=== PATIENT | female | born 1955 ===

== ENCOUNTER 2023-04-09 05:50 | Day surgery (SDC) | payer OTHER ==
[~2023-04-09 05:50] MED LIST: CRESTOR10 MG PO; LOTREL 5-10 MG1 CAP PO; VITAMIN D310 MCG/1 M PO
== END 2023-04-09 12:00 | disposition home or self-care (01) ==
LOC: CIR.AMB 05:50
PROVIDERS: ATTEND Colon & Rectal Surgery
DX: K80.10 Calculus of gallbladder with chronic cholecystitis without obstruction (principal); Z20.822 Contact with and (suspected) exposure to COVID-19